=== PATIENT | female | born 1995 | race Caucasian/White ===

== ENCOUNTER 2024-09-09 03:20 | Outpatient (CLI) | payer BC, SELFPAY ==
[2024-09-09 08:13] LABS: Abs Immature Grans 0.01 10^3/uL (0.0-0.06); Absolute Basophil Count 0.03 10^3/uL (0.0-0.2); Absolute Eosinophil Count 0.13 10^3/uL (0.0-0.7); Absolute Lymphocyte Count 2.01 10^3/uL (1.2-3.4); Absolute Neutrophil Count 2.52 10^3/uL (1.2-6.7); Basophils % 0.6 %; Eosinophils % 2.5 %; HCT 38.8 % (36.0-46.0); HGB 12.9 g/dL (11.2-15.7); Immature Grans % 0.2 %; Lymphocytes % 39.4 %; MCH 29.6 pg (27.0-33.0); MCHC 33.2 % (32.0-36.0); MCV 89 fL (80-95); MPV 9.4 fL (8.0-11.0); Monocytes % 7.8 %; Neutrophils % 49.5 %; Platelet Count 331 10^3/uL (130-400); RBC 4.36 10^6/uL (3.93-5.22); RDW 11.9 % (11.7-14.6)
[2024-09-09 08:32] LABS: Calculated LDL 108 mg/dL (<100); Cholesterol 193 mg/dL (<200); HDL Cholesterol 73 mg/dL (40-60); Triglyceride 64 mg/dL (<150)
== END 2024-09-09 03:21 | disposition home or self-care (01) ==
LOC: LBO 03:20
PROVIDERS: PCP Nurse Practitioner Family; Visit Provider Nurse Practitioner Family
DX: Z00.00 Encounter for general adult medical examination without abnormal findings (principal); N92.1 Excessive and frequent menstruation with irregular cycle
CPT/HCPCS: 36415; 80061; 85025

== ENCOUNTER 2024-12-04 11:37 | Outpatient (CLI) | payer BC, SELFPAY ==
[2024-12-04 11:41] LABS: Abs Immature Grans 0.02 10^3/uL (0.0-0.06); Absolute Basophil Count 0.04 10^3/uL (0.0-0.2); Absolute Eosinophil Count 0.08 10^3/uL (0.0-0.7); Absolute Lymphocyte Count 2.06 10^3/uL (1.2-3.4); Absolute Monocyte Count 0.53 10^3/uL (0.1-0.8); Absolute Neutrophil Count 5.31 10^3/uL (1.2-6.7); Basophils % 0.5 %; HCT 40.4 % (36.0-46.0); HGB 13.5 g/dL (11.2-15.7); Immature Grans % 0.2 %; Lymphocytes % 25.6 %; MCH 29.3 pg (27.0-33.0); MCHC 33.4 % (32.0-36.0); MCV 88 fL (80-95); MPV 9.4 fL (8.0-11.0); Monocytes % 6.6 %; Neutrophils % 66.1 %; Platelet Count 338 10^3/uL (130-400); RDW 11.4 % (11.7-14.6); RDW-SD 36.8 fL; WBC 8.04 10^3/uL (4.4-10.8)
--- OUTSIDE RECORDS SUMMARY | 2024-12-04 11:41 | XMS_ITS | Encounter Summary ---
Author Organization [place] [address] Care Team Providers Care Hemodialysis Technician Name Role Phone Rhoda Noel APRN Primary Care Provider [phone] Reason for Referral * Consultation (Routine) - Closed Specialty Diagnoses / Procedures Referred By Jay brown Referred To Contact Dermatology Diagnoses Disorder of skin and subcutaneous tissue Rhoda Noel APRN [address] [place] [address] [facility] [address] [place] [address] Referral ID Status Reason Start Date Expiration Date V isits Requested Visits Authorized [id number] Closed Consult, Test & Treat PCP Updated and/or Approved 07/24/2024 07/24/2025 6 6 Encounter Details Date Type Department Care Team (Latest Contact Info) Description 08/17/2024 Transcribe Orders eDH Incoming Referrals [phone] Rhoda Noel APRN [address] [place] [address] Disorder of skin and subcutaneous tissue Social History Tobacco Use Types Packs/Day Years Used Date Smoking Tobacco: Former Cigarettes Smokeless Tobacco: Never Alcohol Use Standard Drinks/Week Comments Yes 0 (1 standard drink = 0.6 oz pur e alcohol) 3 per week [facility] Inpatient Questions Answer Date Recorded Does Anyone Try to Keep You From Having Contact with Others or Doing Things Outside Your Home? no 01/22/2024 Feels Threatened by Someone no 04/2024 Feels Unsafe at Home or Work/School no 01/22/2024 Physical Signs of Abuse Present no 01/22/2024 Sex and Gender Information Value Date Recorded Sex Assigned at Not on file Gender Identity Not on file Sexual Orientation Not on file documented as of this encounter Plan of Treatment Scheduled Referrals Name Type Priority Associated Diagnoses Orde r Schedule Referral to Dermatology Outpatient Referral Routine Disorder of skin and subcutaneous tissue Ordered: 08/17/2024 documented as of this encounter Visit Diagnoses Diagnosis Disorder of skin and subcutaneous tissue Unspecified disorder of skin and subcutaneous tissue documented in this encounter Care Teams Hemodialysis Technician Relationship Specialty Start Date End Date Rhoda Noel APRN [address] [facility] [address] PCP - General Family Medicine 08/16/24 documented as of this encounter
--- OUTSIDE RECORDS SUMMARY | 2024-12-04 11:41 | XMS_ITS | Encounter Summary ---
Author Organization [facility] [place] [address] Care Team Providers Care Stock Clerk Name Role Phone Rhoda Noel APRN Primary Care Provider [phone] Reason for Referral * Consultation (Routine) - Closed Specialty Diagnoses / Procedures Referred By Jay t Referred To Contact Endocrinology Diagnoses Obesity, unspecified class, unspecified obesity type, unspecified whether serious comorbidity present Rhoda Noel APRN [address] [place] [address] [facility] [address] [place] [phone] Referral ID Status Reason Start Date Expiration Date V isits Requested Visits Authorized [id number] Closed Consult, Test & Treat PCP Updated and/or Approved 08/28/2024 02/26/2025 6 6 Encounter Details Date Type Department Care Team (Latest Contact Info) Description 09/23/2024 Transcribe Orders eDH Incoming Referrals [phone] Rhoda Noel APRN [address] [facility] [place] [place] [id number] Obesity, unspecified class, unspecified obesity type, unspecified whether serious comorbidity present Social History Tobacco Use Types Packs/Day Years Used Date Smoking Tobacco: Former Cigarettes Smokeless Tobacco: Never Alcohol Use Standard Drinks/Week Comments Yes 0 (1 standard drink = 0.6 oz pur e alcohol) 3 per week [facility] Inpatient Questions Answer Date Recorded Does Anyone [...] Scheduled Referrals Name Type Priority Associated Diagnoses Order Schedule Referral to Endocrinology Outpatient Referral Routine Obesity, Unspecified Class, Unspecified Obesity Type, Unspecified Whether Serious Comorbidity Present Ordered: 09/23/2024 documented as of this encounter Visit Diagnoses Diagnosis Obesity, unspecified class, unspecified obesity type, unspecified whether serious comorbidity present documented in this encounter Care Teams Stock Clerk Relationship Specialty Start Date End Date Rhoda Noel APRN [address] [place] [address] PCP - General Family Medicine 08/16/24 documented as of this encounter
--- OUTSIDE RECORDS SUMMARY | 2024-12-04 11:41 | XMS_ITS ---
Author Organization Unknown Address [address] [place] [phone] Phone Care Team Providers Care Sales Representative Supervisor Name Role Phone ETHAN JENKINS Registered Nurse Unavailable CRESENCIO Altman Attending Unavailable [facility] Unavailable UNLISTED PROVIDER - REQUESTED Xhandoff Un available Results [facility] COVID FLU RSV GENEXPE RT - Collect Date/Time: 05/23/2024 16:23 [facility] ID: [id number] [address] [place] [place], [place], [id number] LOINC: 54082-0 Test Value Unit Reference Range Code Code System Flag COVID POSITIVE Normal: Negative 60002-5 LOINC A INFLUENZA A DNA NEGATIVE Normal: Negative 23758-8 LOINC INFLUENZA B DNA NEGATIVE Normal: Negative 32665-5 LOINC RSV DNA NEGATIVE Normal: Negative 93317-7 LOINC XR CHEST 2V PA AND LATERAL - Completed: 05/23/2024 16:31 LOINC: [facility] RADIOLOGY [place], [place] [address] RADIOLOGY PACS WHIP SAWYER REPORT Patient Name: REDDY TIMMONS MRN: Sex: : Age: [id number] F 1995 28 Account: Accession: Admit: StayType: [id number] 05/23/2024 E Ordered: Order ID: Submitted: Ordering Provider: 05/23/2024 16:19 [id number] REENA HEARD Completed: Technologist: Resulted: 05/23/2024 16:36 MLL 05/23/2024 16:42 FINAL REPORT EXAMINATION: XR CHEST 2V PA AND LATERAL CLINICAL HISTORY: Reason for Chest: Cough Add'l Info: TECHNIQUE: PA and lateral views of the chest COMPARISON: None FINDINGS: The lungs are clear. No airspace consolidation, pleural effusion, or pneumothorax. The cardiomediastinal silhouette and pulmonary vascularity are within normal limits. No acute osseous abnormality is seen. IMPRESSION: No acute pulmonary process. Thank you for letting us participate in the care of this patient. If you are a health care provider and have any questions regarding this report, please contact the number below. For patients who have questions please contact the health human services care specialist that requested your imaging first. Social History Type Status Start Date End Date Code Code Syst em Smoking History Current some day smoker [id number] SNOMED CT Sex Female Vital Signs Vital Sign Value Unit Swift Value Swift Unit Date/Time Recent/Initial? Code Code System Body Mass Index 31.16 kg/m2 05/23/2024 14:58 Initial 05927 -5 LOINC Systolic Blood Pressure 141 mm[Hg] 05/23/2024 14:58 Initial 8480- 6 LOINC Diastolic Blood Pressure 91 mm[Hg] 05/23/2024 14:58 Initial 8462- 4 LOINC Body Surface Area 2.16 m2 05/23/2024 14:58 Initial 3140- 1 LOINC Height 175.260 0 cm 69.00 in 05/23/2024 14:58 Initial 8302- 2 LOINC O2 Saturation 100 % 2023 14:58 Initial 77390 -5 LOINC Pulse 83.0 /min 05/23/2024 14:58 Initial 8867- 4 LOINC Respiration 16 /min 05/23/20 14:58 Initial 9279- 1 [facility] Temperature 36.8 [place] 98.2 F 05/23/20 14:58 Initial 8310- 5 [facility] Weight 95.71 kg 211.00 lbs 05/23/2024 14:58 Initial 91595 -7 [facility] Hospital Discharge Instructions Should you have any questions prior to discharge, please contact a member of your healthcare team. If you have left the hospital and have any questions, please contact your primary care physician. Reason For Referral No Data Found Allergies and Adverse Reactions Allergy Substance Reaction Severity Start Date Concern Status Co de Code System AMOXICILLIN Active 723 RxNorm Plan of Treatment No Data Found Encounters Encounter Diagnosis Start Date Code Code Sys tem COVID-19 05/23/2024 SNOMED-CT Personal Care Team Section Performer Name Performer Role Active Date Inactive Da conor
--- OUTSIDE RECORDS SUMMARY | 2024-12-04 11:41 | XMS_ITS | Clinical Summary ---
Author Organization [facility] Address [facility] [place] [address] Care Team Providers Care Technical Illustrator Name Role Phone Rhoda Noel APRN Primary Care Provider [phone] Allergies Active Allergy Reactions Criticality Noted Date Comments Amoxicillin Rash Medium 09/12/2023 Medications Medication Sig Dispensed Refills Start Date End Date Status lamoTRIgine (LaMICtal) 100 mg tablet Take 50 mg by mouth daily. Active atomoxetine (Strattera) 60 mg capsule Take 60 mg by mouth daily. Active hydrOXYzine (Atarax) 10 mg tablet Take 10 mg by mouth nightly as needed for Itching. Active Active Problems No known active problems Encounters Date Type Department Care Team Description 09/23/2024 Transcribe Orders eD Incoming Referrals [phone] Rhoda Noel APRN Obesity, unspecified class, unspecified obesity type, unspecified whether serious comorbidity present from Last 3 Months Social History Tobacco Use Types Packs/Day Years Used Date Smoking Tobacco: Former Cigarettes Smokeless Tobacco: Never Tobacco Cessation:Counseling Given: Not Answered Alcohol Use Standard Drinks/Week Comments Yes 0 (1 standard drink = 0.6 oz pur e alcohol) 3 per week [facility] Inpatient Questions Answer Date Recorded Does [...] on file Sexual Orientation Not on file Last Filed Vital Signs Vital Sign Reading Time Taken Comments Blood Pressure 133/90 01/22/2024 10:00 AM EST Pulse 89 01/22/2024 10:00 AM EST Temperature 36.7 ??C (98.1 ??F) 01/22/2024 9:33 AM ES T Respiratory Rate 18 01/22/2024 10:00 AM EST Oxygen Saturation 100% 01/22/2024 10:00 AM EST Inhaled Oxygen Concentration - - Weight 99.8 kg (220 lb) 01/22/2024 6:13 AM EST Height 172.7 cm (5' 8) 01/22/2024 6:13 AM EST Body Mass Index 33.45 01/22/2024 6:13 AM EST Plan of Treatment Health Maintenance Due Date Last Done Comments HIV screen 2012 Hepatitis C Screening 2012 Lipid Screening 2012 Hepatitis B vaccine (0-59 yrs) (1) 2013 Tetanus/Diphtheria/Pertussis Vaccines (1 - Tdap) 07/09 HPV test 2024 PAP Smear 2024 Covid-19 Vaccine (1 - season) 2024 Influenza (Flu) vaccine (1 o f 1 - Influenza standard series) 07/19/2024 Care Teams Technical Illustrator Relationship Specialty Start Date End Date Rhoda Noel APRN [address] [place] [address] PCP - General Family Medicine 08/16/24
--- OUTSIDE RECORDS SUMMARY | 2024-12-04 11:42 | XMS_ITS | Encounter Summary ---
Author Organization [facility] Address [facility] [place] [address] Care Team Providers Care Surgery Consultant Name Role Phone None Primary Care Provider Unavailabl e Encounter Details Date Type Department Care Team (Latest Contact Info) Description 06/11/2024 Travel Social History Tobacco Use Types Packs/Day Years Used Date Smoking Tobacco: Former Cigarettes Smokeless Tobacco: Never Alcohol Use Standard Drinks/Week Comments Yes 0 (1 standard drink = 0.6 oz pur e alcohol) 3 per week [facility] Inpatient Questions Answer Date Recorded Does Anyone [...] as of this encounter Plan of Treatment Not on file documented as of this encounter Visit Diagnoses Not on filedocumented in this encounter Care Teams Surgery Consultant Relationship Specialty Start Date End Date None None PCP - General 09/12/23 08/15/24 documented as of this encounter
--- OUTSIDE RECORDS SUMMARY | 2024-12-04 11:42 | XMS_ITS | Encounter Summary ---
Author Organization [facility] [place] [address] Care Team Providers Care Highway Maintenance Worker Name Role Phone None Primary Care Provider Unavailabl e Encounter Details Date Type Department Care Team (Late st Contact Info) Description 05/23/2024 Interpretation Only [facility] in [facility] [address] [place] [address] Lexi Adkins, RN [facility] [address] [place] [address] Social History Tobacco Use Types Packs/Day Years [...] on file documented as of this encounter Procedures Procedure Name Priority Date/Time Associated Diagnosis Comments XR CHEST PA AND LATERAL STAT 05/23/2024 4:32 PM EDT documented in this encounter Results * XR Chest PA & Lateral (Generic) (05/23/2024 4:32 PM EDT) PT CLASS E DH RAD ADMITDTTM [id number] RAD PT RAD INFO [id number]^ALICIA^C HELSEA^L RAD EXAM DESC XCXR2^XR CHEST 2V PA AND LATERAL^RIS [facility] WORKSTATION ID [id number] [facility] Anatomical Region Laterality Modality Chest N/A Radiographic Hillary ging Impressions 05/23/2024 4:42 PM EDT No acute pulmonary process. Thank you for letting us participate in the care of this patient. ??If you are a health care provider and have any questions regarding this report, please contact the number below. ??For patients who have questions please contact the health home care attendant that requested your imaging first. ? Electronically signed by: Neal Gutierrez MD, [facility] ??([phone]), at 05/23/2024 4:42 PM Narrative 05/23/2024 4:42 PM EDT EXAMINATION: XR CHEST 2V PA ??AND LATERAL CLINICAL HISTORY: ??Reason for Chest: ??Cough ??Add'l Info: TECHNIQUE: PA and lateral views of the chest COMPARISON: None FINDINGS: The lungs are clear. No airspace consolidation, pleural effusion, or pneumothorax. The cardiomediastinal silhouette and pulmonary vascularity are within normal limits. No acute osseous abnormality is seen. Procedure Note Neal Gutierrez MD - 05/23/2024 EXAMINATION: XR CHEST 2V PA AND LATERAL CLINICAL HISTORY: Reason for Chest: Cough Add'l Info: TECHNIQUE: PA and lateral views of the chest COMPARISON: None FINDINGS: The lungs are clear. No airspace consolidation, pleural effusion, or pneumothorax. The cardiomediastinal silhouette and pulmonary vascularityare within normal limits. No acute osseous abnormality is seen. IMPRESSION No acute pulmonary process. Thank you for letting us participate in the care of this patient. If youare a health care provider and have any questions regarding this report,please contact the number below. For patients who have questions please contactthe health home care attendant that requested your imaging first. Electronically signed by: Neal Gutierrez MD, [facility]([phone]), at 05/23/2024 4:42 PM Lexi Adkins RN I[facility] IMG DX ORDERABLES documented in this encounter Visit Diagnoses Not on filedocumented in this encounter Care Teams Highway Maintenance Worker Relationship Specialty Start Date End Date None None PCP - General 09/12/23 08/15/24 documented as of this encounter
--- OUTSIDE RECORDS SUMMARY | 2024-12-04 11:42 | XMS_ITS | Encounter Summary ---
Author Organization [facility] Address [facility] [place] [address] Care Team Providers Care Enterprise Systems Manager Name Role Phone None Primary Care Provider Unavailabl e Encounter Details Date Type Department Care Team (Latest Contact Info) Description 01/28/2024 Travel Social History Tobacco Use Types Packs/Day [...] on filedocumented in this encounter Care Teams Enterprise Systems Manager Relationship Specialty Start Date End Date None None PCP - General 09/12/23 08/15/24 documented as of this encounter
--- OUTSIDE RECORDS SUMMARY | 2024-12-04 11:42 | XMS_ITS | Encounter Summary ---
Author Organization [facility] Address [facility] [place] [address] Care Team Providers Care Job Coach Name Role Phone None Primary Care Provider Unavailabl e Encounter Details Date Type Department Care Team ([facility] st Contact Info) Description 06/18/2024 8:40 AM EDT TH Visit (TeleHealth) [place] [address] Micheline Madera APRN [facility] [address] [place] [address] Surgery follow-up Social History Tobacco Use Types Packs/Day Years Used Date Smoking Tobacco: Former Cigarettes Smokeless Tobacco: Never Alcohol Use Standard Drinks/Week Comments Yes 0 (1 standard drink = 0.6 oz pur e alcohol) 3 per week [facility] Inpatient Questions Answer Date Recorded Does Anyone Try to Keep You From Having Contact with Others or Doing Things Outside Your Home? no 01/22/2024 Feels Threatened by Someone no 030 04/2024 Feels Unsafe at Home or Work/School no 01/22/2024 Physical Signs of Abuse Present no 01/22/2024 Sex and Gender Information Value Date Recorded Sex Assigned at Not on file Gender Identity Not on file Sexual Orientation Not on file documented as of this encounter Progress Notes * Micheline Madera APRN - 06/18/2024 8:40 AM EDT Plastic Surgery Telehealth Follow Up Note Micheline Madera APRN. Reason for visit: Follow up s/p BBR Date of surgery: 01/22/24 Procedure(s): Bilateral Breat Reduction (MKM) HPI: Celeste Pond is here today for follow up after drainage of abscess on right breast post breast reduction. Completed course of Clindamycin. She reports redness, swelling and pain have all resolved. She has no concerns. Examination: Limited due to telehealth Deferred. Culture from drainage. Component 7 d ago Anaerobic Culture Rare Cutibacterium acnes (Propionibacterium acnes) Abnormal Organism Cutibacterium acnes (Propionibacterium acnes) Abnormal Impression: Celeste Pond is a 28 y.o. female who was seen today for follow-up. Infection resolved. Plan: Follow up PRN documented in this encounter Plan of Treatment Not on file documented as of this encounter Visit Diagnoses Diagnosis Surgery follow-up Follow-up examination, following unspecified surgery documented in this encounter Care Teams Job Coach Relationship Specialty Start Date End Date None None PCP - General 09/12/23 08/15/24 documented as of this encounter
--- OUTSIDE RECORDS SUMMARY | 2024-12-04 11:42 | XMS_ITS | Encounter Summary ---
Author Organization [facility] [place] [address] Care Team Providers Care Investment Fund Manager Name Role Phone None Primary Care Provider Unavailabl e Reason for Visit * Reason Comments Follow Up Surgery Encounter Details Date Type Department Care Team ([facility] st Contact Info) Description 06/11/2024 1:00 PM EDT Office Visit Plastic Surgery at [facility] [place] [address] Micheline Madera APRN [facility] [place] [address] Macromastia Social History Tobacco Use Types Packs/Day Years Used Date Smoking Tobacco: Former Cigarettes Smokeless Tobacco: Never Alcohol Use Standard Drinks/Week Comments Yes 0 (1 standard drink = 0.6 oz pur e alcohol) 3 per week [facility] Inpatient Questions Answer Date Recorded Does Anyone [...] Progress Notes * Micheline Madera APRN - 06/11/2024 1:00 PM EDT Plastic Surgery Telehealth Follow Up Note Micheline Madera APRN. Reason for visit: Follow up s/p BBR Date of surgery: 01/22/24 Procedure(s): Bilateral Breat Reduction (MKM) Complications: None reported HPI: Celeste Pond is here today for follow up on a red lump on her right breast post breast reduction. She reports that she was healing well without concerns. About a week ago the right breast had a small area that was red and tender. Over the past week this has gotten worse. No fevers/chills. Examination: Patient is alert, conversant, comfortable Right breast erythema inferior to NAC. Area cleansed with alcohol and 1 ml of 1% lidocaine with epi injected. Area cleansed with Betadine and lanced. Approximately 3 ml of purulent fluid drained. Fluid sent for culture. Impression: Celeste Pond is a 28 y.o. female who was seen today for follow-up. Abscess drained inclinic. Plan: Follow up: 7-10 days via [facility] course of Clindamycin. Follow cultures and adjust antibiotics as indicated. Dr. Choi in to examine patient. He agrees with this plan. documented in this encounter Plan of Treatment Not on file documented as of this encounter Procedures Procedure Name Priority Date/Time Associated Diagnosis Comments ANAEROBIC CULTURE Routine 06/11/2024 1:2 1 PM EDT Macromastia HC WOUND/ABSCESS CX Routine 06/11/2024 1 :21 PM EDT Macromastia ABSCESS/WOUND ASPIRATE CULTURE Routine 06/11/2024 1:21 PM EDT Macromastia documented in this encounter Results * (ABNORMAL) Anaerobic Culture (06/11/2024 1:21 PM EDT) Anaerobic Culture Rare Cutibacterium acnes (Propionibacteriu m acnes)(A) [facility] Organism Cutibacterium acnes (Propionibacteriu m acnes)(A) [facility] Abscess RIGHT BREAST STRUCTURE / Unknown 06/11/2024 1:21 PM EDT 06/11/2024 2:35 PM EDT Narrative Resulting Agency Comment Spec In Lab Micheline Madera APRN MICROBIOLOGY - GENER AL ORDERABLES Performing Organization Address [facility] de Phone Number [facility] [place] [address] * (ABNORMAL) Abscess/Wound Aspirate Culture (06/11/2024 1:21 PM EDT) Abscess/Wound Aspirate Culture No growth(A) [facility] Gram Stain Many Neutrophils seen Moderate Gram Positive Rods seen Few Gram Positive Cocci seen (A) [facility] Organism Gram Positive Rods(A) [facility] Organism Gram Positive Cocci(A) [facility] Abscess RIGHT BREAST STRUCTURE / Unknown 06/11/2024 1:21 PM EDT 06/11/2024 2:35 PM EDT Narrative Resulting Agency Comment Spec In Lab Micheline Madera APRN MICROBIOLOGY - GENER AL ORDERABLES Performing Organization Address [facility] Co de Phone Number [facility] [place] [address] documented in this encounter Visit Diagnoses Diagnosis Macromastia Hypertrophy of breast documented in this encounter Care Teams Investment Fund Manager Relationship Specialty Start Date End Date None None PCP - General 09/12/23 08/15/24 documented as of this encounter
--- OUTSIDE RECORDS SUMMARY | 2024-12-04 11:42 | XMS_ITS | Encounter Summary ---
[place] [address] Care Team Providers Care Research Methods Instructor Name Role Phone None Primary Care Provider Unavailabl e Reason for Visit * Auth/Cert (Routine) Specialty Diagnoses / Procedures Referred By Jay brown Referred To Contact Diagnoses macromastia Procedures PRO BREAST REDUCTION PRO FULL THICK GRFT TRUNK <20 SQCM REDUCTION MAMMOPLASTY, JORDAN (WRVU 16.03) FTSG, FREE, DIR CLOSE DONOR SITE, TRUNK, 20 SQ CM OR LESS (WRVU 9.15) MODIFIER Bry Ortiz MD [facility] [place] [address] [facility] Referral ID Status Reason Start Date Expiration Date Visits Re quested Visits Authorized [id number] 1 1 Encounter Details Date Type Department Care Team (Late st Contact Info) Description 01/22/2024 7:32 AM EST Anesthesia Event [facility] [address] Nallely Sibley MD [facility] [place] [address] Anesthesia Record Procedure Summary Procedure Name Responsible Anesthesiologist Anesthesia Start Time Anesthesia Stop Time REDUCTION MAMMOPLASTY, JORDAN (WRVU 16.03) (Bilateral: Breast) Nallely Sibley MD 01/22/24 0732 01/22/24 0937 Events Date Time Event Comment 01/22/2024 0659 0732 AN Verify 0732 Start 0732 An Start Data 0737 An Induction 0739 An Intubation 0740 Anesthesia Ready 0754 Procedure Start 0823 Break/Relief In I assumed ca re for Break Relief before which we: 1. Identified the patient 2. Identified the responsible provider(s) 3. Reviewed the pertinent medical history 4. Discussed the surgical plan and course 5. Reviewed intra-op anesthesia management and issues during anesthesia 6. Set expectations for the relief (and/or post-procedure) period 7. Allowed opportunity for questions and acknowledgement of understanding Elena Corona CRNA 08 Break/Relief Out 927 Extubation/LMA Out 928 an stop data 0937 Recovery or ICU Handoff Roya ent care was transferred to the destination unit staff after review of the patient's medical history, current anesthetic/surgical status and plan, according to the Provider Handoff Checklist. 0937 Stop Meds Name Total Propofol 450 mg Propofol INF 847.6 mg Midazolam 2 mg IV Lidocaine 60 mg Dexamethasone 8 mg Ondansetron 8 mg HYDROmorphone 1.2 mg clindamycin (Cleocin) (150 mg/mL) inject ion 600 mg 600 mg lactated ringers 900 mL * Agents Name O2 * Blood No blood administrations on file. Lines, Drains, and Airways Type Details Placement Removal PIV 01/22/24; 06; ahnz-xef-tikurw catheter system; 20 gauge; metacarpal vein (top of hand), left; E BENIGNO Tesfaye 01/22/24 0634 by Miranda Tesfaye RN Incision 01/22/24; 0752; Left , lower; breast; transverse 01/22/24 0752 by Nimco Vick RN Incision 01/22/24; 0757; Righ t, lower; breast; transverse 01/22/24 0757 by Nimco Vick RN Supraglottic Mask Ventilation: Ea sy (1); LMA Type: iGel; LMA Size: 4; Inserted by: Malathi Syed; Removal Date: 01/22/24; Removal Time: 92701/22/24 0744 by Rowena Syed CRNA 01/22/24 09 by Rowena Syed CRNA documented in this encounter Social History Tobacco Use Types Packs/Day Years Used Date Smoking Tobacco: Former Cigarettes Smokeless Tobacco: Never Alcohol Use Standard Drinks/Week Comments Yes 0 (1 standard drink = 0.6 oz pur e alcohol) 3 per week IPV Inpatient Questions Answer Date Recorded Does [...] on file documented as of this encounter OR Notes * Anesthesia Postprocedure Evaluation - Nallely Sibley MD - 01/22/2024 10:30 AM EST Department of Anesthesiology Post-procedure Note Patient: Celeste Pond Procedure Summary Date: 01/22/24 Room / Location: [address] Anesthesia Start: 731 Anesthesia Stop: 936 Procedures: REDUCTION MAMMOPLASTY, JORDAN (WRVU 16.03) (Bilateral: Breast) FTSG, FREE, DIR CLOSE DONOR SITE, TRUNK, 20 SQ CM OR LESS (WRVU 9.15) (Bilateral: Trunk) MODIFIER MACKEY Diagnosis: Macromastia (macromastia) Surgeons: Bry Choi MD Responsible Provider: Nallely Sibley MD Anesthesia Type: general ASA Status: 2 All Anesthesia Providers: Anesthesiologist: Nallely Sibley MD LEAD INVESTIGATOR: Rowena Syed CRNA Vitals Value Taken Time BP 133/90 01/22/24 1000 Temp 36.7 ??C (98.1 ??F) 01/22/24 0933 Pulse 86 01/22/24 1013 Resp 18 01/22/24 1000 SpO2 100 % 01/22/24 1014 Pain Level 8 01/22/24 0959 Vitals shown include unfiled device data. Patient Location: PACU/[facility] Level of Consciousness: Awake and Alert Pain Management: Satisfactory Analgesia PONV: None Cardiovascular Status: At Baseline Respiratory Status: At Baseline Postoperative Fluid Status: Possible Anesthetic Complications: NONE apparent at time of evaluation Final Primary Anesthesia Type: General (The anesthetic type performed was the same as planned.) Comments: * Anesthesia Preprocedure Evaluation - Nallely Sibley MD - 01/21/2024 1:46 PM EST Pre-Anesthesia Evaluation for: Celeste Pond a 28 y.o. female. Procedure(s): REDUCTION MAMMOPLASTY, JORDAN (WRVU 16.03) FTSG, FREE, DIR CLOSE DONOR SITE, TRUNK, 20 SQ CM OR LESS (WRVU 9.15) MODIFIER MACKEY There are no problems to display for this patient. History reviewed. No pertinent past medical history. History reviewed. No pertinent surgical history. Social History Tobacco Use ??? Smoking status: Former Types: Cigarettes ??? Smokeless tobacco: Never Substance Use Topics ??? Alcohol use: Yes Comment: 3 per week Social History Substance and Sexual Activity Drug Use Yes ??? Frequency: 1.0 times per week ??? Types: Marijuana Comment: edible Allergies Allergen Reactions ??? Amoxicillin Rash Medications: MAR and/or home medications have been reviewed. Physical Exam: Preprocedure Vitals Current as of 01/21/24 1346 No BP, pulse, respiration, SpO2, or temperature recorded. Height: 173.7 cm (5' 8.39) (09/12/23) Weight: 103 kg (227 lb) (09/12/23) BMI: 34.12 IBW: 64.8 kg (142 lb 13.3 oz) Airway Assessment: Mallampati: II TM distance: >3 FB Cardiovascular Assessment: Rhythm: regular Rate: normal Pulmonary Assessment: unlabored breathing Dental Assessment: - normal exam Misc Assessment: IV access: Peripheral line Last Filed Perioperative Cognitive Screening None Anesthesia Plan: ASA 2 general, with a(n) intravenous induction 28 yo, 103 kg patient presenting for bilateral breast reduction. Uses marijuana previously (hasn't used in over a month), on lamictal on bipolar disorder. Allergy to amoxicillin (rash). No prior anesthesia records, but denies family hx of issues Plan: GA/LMA Region - Other Informed Consent: Anesthetic plan and risks discussed with patient. Plan discussed with LEAD INVESTIGATOR and attending. Anesthesia Screening documented in this encounter Plan of Treatment Not on file documented as of this encounter Visit Diagnoses Not on filedocumented in this encounter Administered Medications Inactive Administered Medications - up to 3 most recent administrations Medication Order MAR Action Action Date Dose Rate Site clindamycin (Cleocin) (150 mg/mL) injection 600 mg 600 mg, Intravenous, ONCE, 1 dose, On Sat01/22/24 at 0715, Routine, Indication for (Active or Suspected): Prophylaxis Given 01/22/2024 7:40 AM EST 600 mg dexAMETHasone (Decadron) injection Intravenous, PRN, Starting on Sat01/22/24 at 0740, Until Sat01/22/24 at 0937, Anesthesia Intra-op, Routine Given 01/22/2024 7:40 AM EST 8 mg HYDROmorphone (Dilaudid) (2 mg/mL) multi-dose injection solution Intravenous, PRN, Starting on Sat01/22/24 at 0737, Until Sat01/22/24 at 0937, Anesthesia Intra-op, Routine Given 01/22/2024 9:30 AM EST 0.2 mg Given 01/22/2024 9:13 AM EST 0.2 mg Given 01/22/2024 8:01 AM EST 0.4 mg lactated ringers infusion Intravenous, CONTINUOUS PRN, Starting on Sat01/22/24 at 0732, Until Sat01/22/24 at 0937, Anesthesia Intra-op New Bag 01/22/2024 7:32 AM EST lidocaine (pf) (Xylocaine) (20 mg/mL) 2% injection syringe Intravenous, PRN, Starting on Sat01/22/24 at 0737, Until Sat01/22/24 at 0937, Anesthesia Intra-op, Routine Given 01/22/2024 7:37 AM EST 60 mg midazolam (pf) (Versed) (1 mg/mL) multi-dose injection Intravenous, PRN, Starting on Sat01/22/24 at 0732, Until Sat01/22/24 at 0937, Anesthesia Intra-op, Routine Given 01/22/2024 7:32 AM EST 2 mg ondansetron (pf) (Zofran) (2 mg/mL) injection Intravenous, PRN, Starting on Sat01/22/24 at 0740, Until Sat01/22/24 at 0937, Anesthesia Intra-op, Routine Given 01/22/2024 9:20 AM EST 4 mg Given 01/22/2024 7:40 AM EST 4 mg propofoL (Diprivan) (10 mg/mL) infusion Intravenous, CONTINUOUS PRN, Starting on Sat01/22/24 at 0739, Until Sat01/22/24 at 0937, Anesthesia Intra-op, Routine Rate/Dose Change 01/22/2024 9:14 AM EST 50 mcg/kg/min 23.49 mL/hr Rate/Dose Change 01/22/2024 9:00 AM EST 75 mcg/kg/min 35.2 35 mL/hr Rate/Dose Change 01/22/2024 8:45 AM EST 100 mcg/kg/min 46. 98 mL/hr propofoL (Diprivan) 10 mg/mL bolus injection (Anesthesia) Intravenous, PRN, Starting on Sat01/22/24 at 0737, Until Sat01/22/24 at 0937, Anesthesia Intra-op Given 01/22/2024 7:54 AM EST 50 mg Given 01/22/2024 7:39 AM EST 50 mg Given 01/22/2024 7:38 AM EST 100 mg documented in this encounter Care Teams Research Methods Instructor Relationship Specialty Start Date End Date None None PCP - General 09/12/23 08/15/24 documented as of this encounter
--- OUTSIDE RECORDS SUMMARY | 2024-12-04 11:42 | XMS_ITS | Encounter Summary ---
Author Organization [facility] [place] [address] Care Team Providers Care Cigarette Inspector Name Role Phone None Primary Care Provider Unavailabl e Reason for Visit * Reason Comments Follow Up Surgery S/p bbr 01/22/24 Encounter Details Date Type Department Care Team (Latest Contact Info) Description 01/29/2024 1:00 PM EDT Clinical Support Plastic Surgery at [facility], [place] [id number] Surgery follow-up Social History Tobacco Use Types Packs/Day Years Used Date Smoking Tobacco: Former Cigarettes Smokeless Tobacco: Never Alcohol Use Standard Drinks/Week Comments Yes 0 (1 standard drink = 0.6 oz pur e alcohol) 3 per week [facility] Inpatient Questions Answer Date Recorded Does Anyone [...] on file documented as of this encounter Patient Instructions * Patient Instructions* Elizabeth Cobos RN - 01/29/2024 1:00 PM EDT Signs of Infection : A temperature over 100.4 F or 38 C. Redness at the incision line that is beginning to spread away from the incision after the first 48 hours. Yellow pus-like or foul smelling drainage larger than a dime size from the incision or drain sites. Increased pain / discomfort that is not relieved by your pain medicine such as extra strength tylenol, or NSAIDS For any of these symptoms please call our nurse's line at [phone] M - F 8 - 5 For after hours, and on weekends; Call [phone] and ask for our plastic surgeon relocation counselor Activity restrictions until 6 weeks post-op: do not lift/push/pull > 5 pounds, no running or bouncing, no push-ups or plank position. Wear compressive bra around the clock until six weeks after surgery. Six weeks after surgery all restrictions lifted except no under wire bra. Do not wear an under wirebra until you gain normal sensation under your breast (expect 3-6 months) -SCAR MASSAGE TECHNIQUE: to begin 4-6 weeks following surgery What is a scar? When an injury occurs, the body immediately begins to repair itself & the area becomes swollen & sore. Eventually small collagen fibers form, becoming a solid tissue that results in a scar. This scar will continue to change in appearance for 1-2 years. Ideally, a scar is smooth & flat, blending in with the surrounding skin. However, some scars may become highly visible & unattractive due to factors such as your age, scar location & size, nutrition, genetics, or infection. A hypertrophic scar occurs when there is an excess production of collagen tissue that is elevated but remains within the wound boundaries. The scar is tense, red, & can be associated with itching & tenderness. A hypertrophic scar can be ordinary (usually stabilizes in 3 months & may even get smaller and smoother) or keloid. The keloid scar invades nearby tissue that was not part of the original wound, tends to enlarge even after 6 months & does not get softer. Will scar massage make my scars disappear? Nothing can make scars disappear. However, massaging the scar assists the body in breaking down thescar tissue to give it a flatter, softer, appearance. Massage also mobilizes the scar, preventing it from adhering to underlying tissue, tendons, & nerves. You can make the greatest difference in the appearance of the scar if you massage it in the first 3months. What should I use on my scars? You will hear many recommendations. This clinic finds that it is the massage itself that reduces the scar & not necessarily the choice of ointments or creams. We do discourage the use of Vitamin E oil, however, due to studies that have reported scar inflammation & deterioration. How do I massage my scars? Apply the lotion or cream into the scar 3-4 times a day for 8 weeks on new scars, and 3-4 times perday for 3 to 6 months on existing scars. Using your finger, apply pressure to the scar in a crosswise & circular direction, bearing down as hard as tolerated. Remember to protect your scar from the sun, especially in the first 6-12 months, by using a moisturizer with sunblock and wearing a physical barrier (ie: a hat) when possible documented in this encounter Progress Notes * Elizabeth Cobos RN - 01/29/2024 1:00 PM EDT Plastic Surgery Post Op Note Celeste Podn returned to our office today for post surgical follow-up. Date of surgery: 01/22/24 Procedure(s): Bilateral breast reduction (iJmbo) Findings: BBR R 829g, L 772g POD # 7 Subjective : Pain: Celeste reports mild discomfort. She reports that she her is using extra strengthtylenol and motrin with good effect. She already feels substantial relief of her back pain and is happy with her results. Objective : General: Alert, comfortable, conversant, ambulating Breasts: Swelling: mild bilaterally Bruising: mild bilaterally Good symmetry and good perfusion of NAC's bilaterally.Areola incisions are approximated with no drainage. Nipples have normal projection Incisions are well approximated . She was provided with a copy of her path report indicating benign breast tissue. Assessment: No evidence of delayed healing,erythema, or fluid collection. Incisions CDI Plan: Instructed in care of incision lines,and activity restrictions,provided in AVS. We reviewed signs and symptoms of infection, spitting sutures, parameters for normal post op swelling and bruising as stated in our post op brochure. We reviewed communication through [facility] portal, and correct phone numbers to call for concerns on AVS, Begin scar massage at 4-6 weeks post op- instructions provided in AVS Supplies: a lindsay surgical bra was provided Follow up: [address] Choi or sooner if needed. Celeste expressed understanding of her instructions, and is happy with today's visit and plan of care. documented in this encounter Plan of Treatment Not on file documented as of this encounter Visit Diagnoses Diagnosis Surgery follow-up Follow-up examination, following unspecified surgery documented in this encounter Care Teams Cigarette Inspector Relationship Specialty Start Date End Date None None PCP - General 09/12/23 08/15/24 documented as of this encounter
--- OUTSIDE RECORDS SUMMARY | 2024-12-04 11:42 | XMS_ITS | Encounter Summary ---
Author Organization [facility] [place] [address] Care Team Providers Care Poultry Farmer Name Role Phone None Primary Care Provider Unavailabl e Reason for Visit * Auth/Cert (Routine) Specialty Diagnoses / Procedures Referred By Jay t Referred To Contact Diagnoses macromastia Procedures PRO BREAST REDUCTION PRO FULL THICK GRFT TRUNK <20 SQCM REDUCTION MAMMOPLASTY, JORDAN (WRVU 16.03) FTSG, FREE, DIR CLOSE DONOR SITE, TRUNK, 20 SQ CM OR LESS (WRVU 9.15) MODIFIER MACKEY Bry Choi MD [facility] [place] [address] [facility] Referral ID Status Reason Start Date Expiration Date Visits Re quested Visits Authorized [id number] 1 1 Encounter Details Date Type Department Care Team (Late st Contact Info) Description 01/22/2024 7:30 AM EST - 01/22/2024 10:20 AM EST Surgery [place] [id number] Bry Choi MD [facility] [place] [address] REDUCTION MAMMOPLASTY, JORDAN (WRVU 16.03) Social History Tobacco Use Types Packs/Day Years Used Date Smoking Tobacco: Former Cigarettes Smokeless Tobacco: Never Tobacco Cessation:Counseling Given: Not Answered Alcohol Use Standard Drinks/Week Comments Yes 0 (1 standard drink = 0.6 oz pur e alcohol) [address] [facility] Inpatient Questions Answer Date Recorded Does Anyone Try to Keep You From Having Contact with Others or Doing Things Outside Your Home? no 01/22/2024 Feels Threatened by Someone no 0 04/2024 Feels Unsafe at Home or Work/School no 01/22/2024 Physical Signs of Abuse Present no 01/22/2024 Sex and Gender Information Value Date Recorded Sex Assigned at Not on file Gender Identity Not on file Sexual Orientation Not on file documented as of this encounter Last Filed Vital Signs Vital Sign Reading [...] Mass Index 33.45 01/22/2024 6:13 AM EST documented in this encounter Discharge Instructions * Discharge Instructions* Abigail Hill, RN - 01/22/2024 6:34 AM EST Images from the original note were not included. General Anesthesia Discharge Instructions Go home and rest. You may be sleepy for several hours. Take it easy as sudden position changes may cause nausea and/or dizziness. Use caution on stairs. Do not smoke if you are alone. Follow a light to regular diet as tolerated today. If nausea occurs, start with clear liquids, and progress slowly to a regular diet. Do not drive, operate machinery, drink alcoholic beverages or make any legal decisions after havinggeneral anesthesia. The medications given change your reaction time and alter your judgement. IV site -- slight redness is normal, you can use warm compresses. If tenderness and redness increases or foul drainage occurs, please contact your M.D. Patients who have had endotracheal tubes/LMA (tubes used by the anesthesia staff to ensure a safe airway during your operation) may have a sore throat. This is normal and cold liquids or soothing lozenges will help ease this discomfort. Narcotic pain medications can cause constipation, please ask the surgeons office what they recommend for prevention of this. Some non-pharmaceutical means of constipation prevention include increasing intake of fluids, eating more fruits and vegetables as well as fruit juices. If you are uncomfortable and/or unable to urinate within 8 hours of discharge and it is before 5 pm, call your physician. If it is after 5pm go to the closest emergency room or call the hospital electric system operator at [phone] and ask for physician mechanical applications engineer covering for your physician. Questions or problems after 5pm or on a weekend: Call the [facility] electric system operator at and ask for the physician mechanical applications engineer covering for your doctor. At 6:30 am you received 975 mg of acetaminophen- Your next dose should not be taken before 8 hours have passed or as advised by your provider. Next dose not before- 2:30pm You should not take more than a total of 3000 mg of acetaminophen in a 24 hour period. DRAIN CARE INSTRUCTIONS This device collects fluid, promotes healing and recovery, and reduces the chance of infection. Thedrain will be in place until your doctor feels it can be removed. *Strip and empty drain(s) at least twice a day or when full and record output on your chart* Call clinic when each drain has 30cc or less in 24 hours for two days in a row How to Strip and Empty Your SEBASTIAN Drain: Wash your hands. Unpin the drain from your clothing. Strip the Tube: Pinch the tube where it is inserted in to the skin with one hand. Use the other hand to gently squeeze the tube and slide fingers down towards bulb. This forces drainage into bulb. Some drainage may remain in tubing. Repeat as necessary in order to facilitate the drainage. Emptying Drain: Open the top of the drain. Turn the drain upside down and squeeze the contents of the bulb into themeasuring cup. Do not disconnect drain from tubing or rinse it out. Record drainage on your chart when emptying bulb. Remember to record the drainage from each drain separately if applicable. Use one hand to squeeze all of the air from the bulb. With the drain still squeezed, use your otherhand to replace the stopper/plug. This creates the suction. . Pin the drain back to your clothing. Wash your hands again Troubleshooting The bulb is not compressed- Undo plug, re-squeeze bulb and replace plug while squeezing bulb. If the bulb remains expanded, then notify your doctor. No drainage or sudden decrease in amount of drainage- This is usually due to clots in the drain. Follow the instructions on how to strip the drain tubing. If tube accidentally falls out- Place a dry gauze dressing over the drain site and notify your doctor. Increased redness, thick or smelly drainage, swelling, or heat around the tube insertion site- Thismay be a sign of infection. Take your temperature: if it is higher than 101F or 38.8C, call your doctor immediately. Drainage Record NAME: Date of Surgery: Date: Time: If more than one drain, which one: Drainage Amount (per drain) Total Amount (per drain; in 24 hours) * Patient Instructions* Ladarius Vasquez MD - 01/22/2024 6:59 AM EST Breast Reduction Discharge Instructions The healing process after breast reduction surgery varies with each person. You should expect to feel tired for the first 2 - 3 weeks due to anesthesia and the healing process. Rest often during the day and get a good night sleep. Pain (short term and assisted) With any surgery there is some discomfort or pain. You should take both tylenol and ibuprofen. We will prescribe narcotic pain medication in case you require additional pain medication. Take as prescribed and only as needed. We recommend taking an jwdm-lrh-Wdfhuyn stool softener, such as Colace (docusate) or a gentle laxative while taking your narcotic pain reliever. This will help to maintain bowel regularity and prevent straining. Drink plenty of water. You will may have nerve pain after your surgery because the nerve endings have been disturbed. Nerve pain may feel like a burning sensation, itching or a shooting, electric shock pain. This is normaland will get better as you heal. Swelling Moderate bruising and swelling is normal in the first few weeks after surgery. The swelling will gradually go down, but it may remain for 3 to 6 months. To help with swelling wear your compression bra. Showering Do NOT shower until your bolsters come down. Do not take a bath or use a hot tub until incisions are completely healed. If you have drains in place, tie a shoe lace or string around your neck and attach the drains to this to prevent accidental removal. Have someone nearby during your first shower. Incisions/Dressings You may have some red, pink, yellow/clear drainage from your incisions for the first 1-2 weeks. Change gauze as needed. Continue to use dressings until there is no more drainage. DO???S AND DON???TS FOR THE NEXT [address] a motor vehicle for 1-2 weeks or until you can handle the steering wheel without discomfort. Do not drive while taking your narcotic. You will be able to wear a seat belt if you place a small pillow over your chest area. Do not engage in sexual activity for at least 1 week. Do not smoke or be around anyone who smokes for 2 weeks after your surgery. Smoking delays healing and can lead to infection. Do not lift more than 5 pounds or bend at the waist to lift for 6 weeks. Do not participate in strenuous activities such as running or aerobics for 6 weeks. Do resume walking at a gentle pace. Protect your incisions from the sun for 6 months. You may return to work in 1-6 weeks (average time is 3 weeks) depending upon your work activity. GETTING A GOOD NIGHT SLEEP Your surgeon may ask you to sleep on your back for a few weeks. Here are some suggestions for a good nights sleep. Try sleeping in a recliner. Have extra pillows in your bed for support: two along your side and one under your knees to relievelower back pressure. Buy a large body pillow or a pillow with arm rests for sitting up in bed. GETTING OUT OF BED You will be asked to limit the use of your arms for a few weeks after surgery. This can be a problem when trying to get out of bed. The following suggestions help you get out of bed with minimal use of your arms. When in bed, pull your knees up towards your chest and tip to the side, gently rolling out of bed. Take care not to roll onto your breasts. Create a nest of pillows to prop you in a semi-upright position helps give you that extra boost to get out of bed. Have someone put gentle pressure to your lower shoulder blades as you sit up. This gives you the extra power you need to get to your feet. Complications: Call your doctor with the following signs of infection: A temperature over 100.4 F or 38 C Redness at the incision line that spreads away from the incision after the first 48 fredy thick yellow, foul smelling drainage Increasing pain that is not relieved by your pain medicine One breast becomes much larger and more firm than the other Contact your Doctor To make an appointment or for questions about scheduling, please contact our administrative officesat [phone] For clinical questions, please call our nurses at [phone] Both offices are open Saturday thru Saturday 8a - 5p. With emergencies after hours, call the hospital electric system operator at [phone] and ask for the Plastic Surgery Resident mechanical applications engineer. Future Appointments Date Time Provider Department Center 01/29/2024 1:00 PM NURSE, PLASTIC SURGERY [address] documented in this encounter Medications at Time of Discharge Medication Sig Dispensed Refills Start Date End Date traMADoL (Ultram) 50 mg tablet Take 1 tablet by mouth every 6 hours as needed for Pain. 10 tablet 01/22/2024 06/11/2024 documented as of this encounter Progress Notes * Abigail Hill RN - 01/22/2024 10:38 AM EST Patient endorsing 8/10 pain, one time 50mg Tramadol given with good effect. Surgical dressing remains in place with scant dried bloody drainage. Denies n/v, tolerating PO fluids. Discharge instructions and medications reviewed with patient and escort. All questions answered and written copy sent home with patient. Staff assisted dressing patient and all belongings returned to patient. Patient ambulated to car for discharge accompanied by [facility] staff member. documented in this encounter H&P Notes * Ladarius Vasquez MD - 01/22/2024 6:51 AM EST Patient Name: Celeste Pond Patient Age: 28 y.o. Birthdate: 1995 Admit date: 01/22/2024 Attending Physician: Bry Choi MD Plastic Surgery Preoperative H&P: Patient Name: Celeste Pond Patient : 1995 Today's Date: 01/22/2024 Celeste Pond is a 28 y.o. female presenting for bilateral breast reduction with FNG. No changes since last seen. History reviewed. No pertinent past medical history. History reviewed. No pertinent surgical history. History reviewed. No pertinent family history. Social History Socioeconomic History Marital status: Single Spouse name: Not on file Number of children: Not on file Years of education: Not on file Highest education level: Not on file Occupational History Not on file Tobacco Use Smoking status: Former Types: Cigarettes Smokeless tobacco: Never Vaping Use Vaping Use: Former Substance and Sexual Activity Alcohol use: Yes Comment: 3 per week Drug use: Yes Frequency: 1.0 times per week Types: Marijuana Comment: edible Sexual activity: Not on file Other Topics Concern Not on file Social History Narrative Not on file Social Determinants of Health Financial Resource Strain: Not on file Food Insecurity: Not on file Transportation Needs: Not on file Physical Activity: Not on file Intimate Partner Violence: Not At Risk (01/22/2024) IPV Inpatient Questions Prevent Contact with Others: no Feels Threatened by Someone: no Feels Unsafe at Home: no Physical Signs of Abuse Present: no Housing Stability: Not on file Allergies Allergen Reactions Amoxicillin Rash Review of systems: As per HPI, otherwise non-contributory. Exam: General: NAD Resp: CTAB CV: normal rate, regular rhythm A/P: Celeste Pond is a 28 y.o. female presenting for bilateral breast reduction with FNG - Proceed to OR. The risks, benefits and indications were reviewed with the patient and there remains an indication for surgery. Consent signed. - Preoperative abx ordered Ladarius Vasquez PGY-3 Plastic & Reconstructive Surgery Pager: [phone] documented in this encounter Miscellaneous Notes * Brief Op Note - Bry Choi MD - 01/22/2024 9:20 AM EST Brief Operative Note Patient Name: Celeste Pond : [id number] MR#: [id number] Case Date: 01/22/2024 Surgeon: Surgeon(s) and Role: * Bry Choi MD - Primary * Ernestina Rios MD - Resident - Assisting * Ladarius Vasquez MD - Resident - Assisting Preoperative diagnosis: macromastia Postoperative diagnosis: macromastia Procedure(s) (LRB): REDUCTION MAMMOPLASTY, JORDAN (WRVU 16.03) (Bilateral) Anesthesia: General anesthesia Findings: BBR R 829g, L 772g Complications: none Estimated Blood Loss: * No values recorded between 01/22/2024 7:53 AM and 01/22/2024 9:20 AM * Specimens removed during surgery: * No orders in the log * Fluids: Intraprocedure Crystalloid Total None PRBCs: none (See Anesthesia Record/Report for Other Blood Products) Urine Output: (no urine output recorded) Drains: none Disposition: awakened from anesthesia, extubated and taken to the recovery room in a stable condition, having suffered no apparent untoward event. Condition: doing well without problems (Please see the Surgical Encounter Summary for any Implant and Specimen details pertinent to this patient.) Surgical Infection Prevention Bundle Used? N/A Post Op Plan: 7-10 days: Return for wound check, suture removal, give patient pathology report, lindsay bra fitting, review post-op activity restrictions 6 months: skilled nursing f/u with surgeon Future Appointments Date Time Provider Department Center 01/29/2024 1:00 PM NURSE, PLASTIC SURGERY [facility] [address] [place] [address] * Op Note - Bry Choi MD - 01/22/2024 7:53 AM EST [facility] Operative Note Patient Name: Celeste Pond : [id number] MR#: [id number] Case Date: 01/22/2024 Surgeon: Surgeon(s) and Role: * Bry Choi MD - Primary * Ernestina Rios MD - Resident - Assisting * Ladarius Vasquez MD - Resident - Assisting Preoperative diagnosis: macromastia Postoperative diagnosis: macromastia Procedure(s) (LRB): REDUCTION MAMMOPLASTY, JORDAN (WRVU 16.03) (Bilateral(WRVU 9.15) (Bilateral) MODIFIER MACKEY (N/A) Findings: grossly normal appearing breast tissue Anesthesia: General Estimated Blood Loss: 100cc Specimens removed during surgery: * No orders in the log * Drains: none Surgical Closure: Primary Closure - skin incision is completely closed without any wires, margaret, drains or other devices Disposition: awakened from anesthesia, extubated and taken to the recovery room in a stable condition, having suffered no apparent untoward event. Condition: doing well without problems (Please see the Surgical Encounter Summary for any Implant and Specimen details pertinent to this patient.) HPI/Surgical Indications: 28yo F with symptomatic macromastia. Procedure Description: The patient was identified and marked in the preoperative holding area. We reviewed the surgical plan, risks, and complications, and she wished to proceed. Patient was marked in the pre-operative area. The patient was brought to the operating room and positioned supine on the operating table with thearms out. Anesthetic monitors and SCDs were applied. General anesthesia was induced and a time-out was performed. The entire chest was prepped and draped in the usual sterile fashion. Pre-operative antibiotics were administered. We began with the right breast. 10cc of 1% lidocaine with epinephrine was injected into the the skin. The pedicle was marked to be about 7-8cm in width and nipple was marked with a diameter of about 42mm. The skin on the pedicle was de-epithelized expect for the marked nipple. The marked incisions were made through the dermis using a scalpel. The marked pedicle was dissectedusing monopolar electrocautery. Then this dissection was extended to the medial upper al down to the pectoralis fascia, then the inferior lower marked thru the entire breast. The lateral upper marked was then dissection down to the pectoralis fascia. Then the marked superior to the pedicle was dissected down to the pectoralis fascia, observant to leave behind a pocket that allowed for the pedicle to be tucked underneath. Then a lateral flap was raised, about 1 inch in thickness. This allowed the resection tissue to be released completely. The right mass was 0.829kg. The same steps were completed on the left, the left breast resection mass was 0.779kg. Careful hemostasis was achieved with monopolar electrocautery. The deep dermals were done utilizing 4-0 vicryls around the nipple and 3-0 vicryl for the rest. Theskin was then closed with a 4-0 subcuticular monocryl. The patient was placed in a surgical bra. Sponge and needle counts were all correct at the end of the case. There were no intraoperative complications. The patient was awakened from anesthesia without any difficulties. Surgical Infection Prevention Bundle Used? N/A Attestation: Case Date: 01/22/2024 I was present and I participated during the entire procedure (does not need to include opening and closing). Bry Choi MD 01/22/2024 documented in this encounter Plan of Treatment Not on file documented as of this encounter Procedures Procedure Name Priority Date/Time Associated Diagnosis Comments SPECIMEN TO PATHOLOGY Routine 01/22/2024 9:26 AM EST SPECIMEN TO PATHOLOGY Routine 01/22/2024 9:26 AM EST SURGICAL PATHOLOGY REPORT Routine 01/22/2024 9:25 AM EST MODIFIER MACKEY 01/22/2024 7:32 AM EST Macromastia Full Thick Grft Trunk <20 Sqcm (92586) 01/22/2024 7:32 AM EST Macromastia Breast Reduction ([id number]) 01/22/2024 7:32 AM EST Macromastia REDUCTION MAMMOPLASTY, BILATERAL Routine 01/22/2024 6:09 AM EST Macromastia FTSG, FREE, DIR CLOSE DONOR SITE, TRUNK, 20 SQ CM OR LESS Routine 01/22/2024 6:09 AM EST Macromastia documented in this encounter Results * Specimen to Pathology (01/22/2024 9:26 AM EST) AP Specimen 01/22/2024 9:26 AM EST 01/22/2024 9:26 AM EST Narrative [facility] - 01/22/2024 9:26 AM EST Specimen requisition ordered. ??Separate Pathology report to follow Bry Choi MD PATHOLOGY/CYTOLOGY ORDERABLES [facility] [place] [address] * Specimen to Pathology (01/22/2024 9:26 AM EST) AP Specimen 01/22/2024 9:26 AM EST 01/22/2024 9:26 AM EST Narrative [facility] - 01/22/2024 9:26 AM EST Specimen requisition ordered. ??Separate Pathology report to follow Bry Choi MD PATHOLOGY/CYTOLOGY ORDERABLES Performing Organization Address City/State/[facility] Co de Phone Number [facility] [place] [address] * Surgical Pathology Report (01/22/2024 9:25 AM EST) Final Diagnosis [id number] ? Location: [facility] The signing pathologist has (i) examined the relevant preparation(s) for the specimen(s) and (ii) rendered or confirmed the diagnosis(es). . ?Surgical Pathology DIAGNOSIS A - Left breast tissue, reduction mammoplasty: ??- Benign breast tissue B - Right breast tissue, reduction mammoplasty: ??- Benign breast tissue Electronically signed by: ?Luna Contreras DO Verified: ??01/27/2024 10:47 ??Pathologist Performed at: ??-[facility] Dept. of Pathology, [place] [address] Clerical Secretary: Caroline Esquivel MD, AP, ??CLIA Certificate: [id number] SPECIMEN(S) SUBMITTED A - Left breast tissue, excision (1) B - Right breast tissue, excision (1) CLINICAL INFORMATION Macromastia SPECIMEN PROCESSING A - Labeled/Fixativ e: Left breast tissue, fresh. Quantity/Size: Fragments, 760 g, 20 x 15 x 5 cm in aggregate. Tissue Description: Cárdenas-pink skin with attached yellow, lobulated adipose tissue sectioned to reveal yellow, lobulated white fibrous cut surfaces with a fat to fibrous ratio of 85:15. ??No discrete lesions are grossly identified.. Sections/Proces sing: Tissue procured for tumor molecular physicist sections in 3 cassettes labeled A1-A3. B - Labeled/Fixativ e: Right breast tissue, fresh. Quantity/Size: Fragments, 817 g, 20 x 15 x 5 cm in aggregate. Tissue Description: Cárdenas-pink skin with attached yellow, lobulated adipose tissue sectioned to reveal yellow, lobulated white fibrous cut surfaces with a fat to fibrous ratio of 85:15. ??No discrete lesions are gross identified.. Sections/Proces sing: Tissue procured for tumor molecular physicist sections in 3 cassettes labeled B1-B3. ??krd 01/27/2024 10:47 AM EDT [facility] BREAST STRUCTURE / Unknown 01/22/2024 9:25 AM EST 01/22/2024 9:25 AM EST BREAST STRUCTURE / Unknown 01/22/2024 9:25 AM EST 01/22/2024 9:25 AM EST Bry Choi MD PATHOLOGY/CYTOLOGY ORDERABLES [facility] [address] [place] [address] documented in this encounter Visit Diagnoses Diagnosis Macromastia Hypertrophy of breast Macromastia Hypertrophy of breast documented in this encounter Administered Medications Inactive Administered Medications - up to 3 most recent administrations Medication Order MAR Action Action Date Dose Rate Site acetaminophen (Tylenol) tablet 975 mg 975 mg, Oral, ONCE, 1 dose, On Sat01/22/24 at 0630, Administer with a SIP of water only. Maximum dose of acetaminophen is 4,000 mg from all sources in 24 hours., Day of Surgery (Day of Procedure), Routine Given 01/22/2024 6:25 AM EST 975 mg lidocaine-EPINEPHrine (1% - 1:100,000) injection PRN, Starting on Sat01/22/24 at 0755, Until Sat01/22/24 at 1240, Intra-Operative (Intra-Procedure), Routine Given 01/22/2024 7:55 AM EST 18 mLs 19- Surgical Site traMADoL (Ultram) tablet 50 mg 50 mg, Oral, EVERY 6 HOURS PRN, Starting on Sat01/22/24 at 0655, Until Sat01/22/24 at 1240, Pain, Routine Given 01/22/2024 9:59 AM EST 50 mg documented in this encounter Active and Recently Administered Medications Times are shown in EST. Scheduled Medication Order 01/20/2024 01/21/2024 01/22/2024 acetaminophen (Tylenol) tablet 975 mg (COMPLETED) 975 mg, Oral, ONCE, 1 dose, On Sat01/22/24 at 0630, Administer with a SIP of water only. Maximum dose of acetaminophen is 4,000 mg from all sources in 24 hours., Day of Surgery (Day of Procedure), Routine 0625 (Given - Provid er: Miranda Tesfaye RN) clindamycin (Cleocin) (150 mg/mL) injection 600 mg (COMPLETED) 600 mg, Intravenous, ONCE, 1 dose, On Sat01/22/24 at 0715, Routine, Indication for (Active or Suspected): Prophylaxis 0740 (Given - Provid er: Rowena Syed CRNA) PRN Medication Order 01/20/2024 01/21/2024 01/22/2024 lidocaine-EPINEPHrine (1% - 1:100,000) injection (CANCELED) PRN, Starting on Sat01/22/24 at 0755, Until Sat01/22/24 at 1240, Intra-Operative (Intra-Procedure), Routine 0755 (Given - Provid er: Bry Choi MD) traMADoL (Ultram) tablet 50 mg 50 mg, Oral, EVERY 6 HOURS PRN, Starting on Sat01/22/24 at 0655, Until Sat01/22/24 at 1240, Pain, Routine 0959 (Given - Provid er: Abigail Hill RN) No Frequency Medication Order 01/20/2024 01/21/2024 01/22/2024 clindamycin (Cleocin) 300 mg/50 mL infusion 1 dose, Starting on Sat01/22/24 at 0728, Until Sat01/22/24 at 1240, Yusra Stroud: cabinet override 0730 (Due) documented in this encounter Care Teams Poultry Farmer Relationship Specialty Start Date End Date None None PCP - General 09/12/23 08/15/24 documented as of this encounter
--- OUTSIDE RECORDS SUMMARY | 2024-12-04 11:42 | XMS_ITS | Encounter Summary ---
Author Organization [facility] Address [facility] [place] [address] Care Team Providers Care Stencil Cutter Machine Name Role Phone None Primary Care Provider Unavailabl e Reason for Visit * Reason Comments Advice Only Consult, BBR * Consultation (Routine) - Closed Specialty Diagnoses / Procedures Referred By Jay brown Referred To Contact Plastic Surgery Diagnoses BBR consult Procedures CONSULT Self mail Bry Choi MD [facility] [place] [address] Referral ID Status Reason Start Date Expiration Date Visits Re quested Visits Authorized [id number] Closed 09/12/2023 09/11/2024 5 5 Encounter Details Date Type Department Care Team (Late st Contact Info) Description 09/12/2023 2:30 PM EDT Office [place] [address] Bry Choi MD [facility] [place] [address] Macromastia Social History Tobacco Use Types Packs/Day Years Used Date Smoking Tobacco: Former Cigarettes Smokeless Tobacco: Never Tobacco Cessation:Counseling Given: Not Answered Sex and Gender Information Value Date Recorded Sex Assigned at Not on file Gender Identity Not on file Sexual Orientation Not on file documented as of this encounter Last Filed Vital Signs Vital Sign Reading Time Taken Comments Blood Pressure - - Pulse - - Temperature - - Respiratory Rate - - Oxygen Saturation - - Inhaled Oxygen Concentration - - Weight 103 kg (227 lb) 09/12/2023 1:58 PM EDT Height 173.7 cm (5' 8.39) 09/12/2023 1:58 PM ED T Body Mass Index 34.13 09/12/2023 1:58 PM EDT documented in this encounter Patient Instructions * Patient Instructions* Alva Callahan, SAMINA - 09/12/2023 2:30 PM EDT Preoperative Instructions You have been scheduled to have plastic surgery. The instructions below are specific to your procedure. If you are a smoker, we ask that you stop at least 2 months prior to your surgical date and remain nicotine free for at least a month after surgery. Smoking can impair healing and increase your chance of infection. Due to a strong risk for delayed healing, we will preform a CO2 test on the day of your surgery to test for byproducts of smoking.If the test is positive your surgery will be cancelled. If you are 40 years old or older, please remember to have a mammogram with in one year prior to your upcoming breast reduction surgery as we advise not having one for at least six months after surgery. Two Weeks prior to Surgery Stop Vitamin E, Garlic supplements, Ginseng, Fish Oil tablets, Ginkgo and Lucas's Wort and any other herbals. You may resume taking 48 hours after surgery. YOU DO NOT NEED TO STOP any aspirin or ibuprofen products before your surgery. If you need medication for pain, you may take Tylenol or extra strength Tylenol during this two week period. One Week prior to Surgery Please call if you feel ill, have cold or fever, have a rash or breaks in the skin near your surgical site. Stay hydrated. Avoid alcohol and recreational drugs Three Days before Surgery Do not shave near your surgical site One Day before Surgery Shower the night before and the morning of surgery using an antibacterial soap (Dial or Lever 2000)or Hibiclens wash and Breast Surgery - Wash your chest and underarms for several minutes the night before and the morning of surgery using an antibacterial soap (Dial or Lever 2000) or Hibiclens wash. The Same Day Surgery Team will call you the business day before your surgery to give you instructions specific to your procedure and your surgical time. Generally, you will be asked not to eat any solids after midnight. You are allowed clear liquids (water, juan anup, apple juice, black coffee andplain tea) until 2 hours prior to your surgery. Day of Surgery A inventory associate and driver is required at time of discharge. If you are a Same Day procedure and do not have a driveryour surgery will be canceled. DO NOT wear any jewelry, makeup or artificial nails the day of surgery. DO NOT apply any lotions, powders or deodorants on or near the surgical site the day of surgery. Do wear comfortable, loose fitting clothes. Anesthesia will meet with you the morning of surgery. They will perform an assessment and review your history with you. Contact Information: During regular office hours (Saturday- Saturday, non-holiday 8:00 am- 5:00 pm) For an appointment or insurance questions For questions pertaining to your surgical date [phone] For nursing related questions [phone] On weekends, holidays or after office hours: Call and ask the metal buggy operator to page the Plastic Surgery Resident quality control checker. Plastic surgery Clinic fax number: [phone] documented in this encounter Progress Notes * Susan Mendoza - 09/12/2023 2:30 PM EDT Images from the original note were not included. Plastic Surgery Consultation Note Provider: Bry Choi MD PCP: None Reason for office visit: Symptomatic macromastia HPI: Celeste Pond is a 28 y.o. female who presents today for evaluation of symptomatic macromastia. She is unaccompanied for today???s visit. Patient has been thinking about surgery 5-6 years. Patient was a c-cup by 8th grade. Celeste currently wears a 38H and ideally would like to be a B cup. Patient lost 30lbs last year but that didn't affect her bra size. Patient suffers from back/shoulder pain and bra strap grooving. Patient has seen a chiropractor for one year without improvement. She tries to control the pain with heating pads, stretching, and a massage gun. Patient constantly gets rashes underneath her breasts which she treats with OTC creams and powders. She has difficulty finding bras in her size and they continue to be uncomfortable. Patient is non-binary but wants to maintain a feminine look. Sometimes she binds her breasts and she finds it very uncomfortable. Patient is comfortable with a FNG. Patient does not plan to have children. Patient's paternal grandmother had breast cancer. 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 Patient denies smoking. Patient reports that her cup size has been stable for at least 6 months. Examination: BMI: Ht 173.7 cm (5' 8.39) Wt 103 kg (227 lb) BMI 34.13 kg/m?? BSA: Body surface area is 2.23 meters squared. General: On my examination today, the patient appears to be in good health. Her emotional outlook is positive and she asked appropriate questions throughout the visit. Breasts: Bra size: 38H Goal cup size: B Bilateral grade 2 ptosis + shoulder strap grooving No breast masses Moderate axillary rolls Deep should strap grooving IMF with erythema and thinned skin c/w chronic intertrigo No active infections 2 Impression: Symptomatic bilateral breast hypertrophy. Bilateral breast reduction is indicated for relief of her breast-related symptoms. She watched the RAIMUNDO video on breast reduction, and was provided with an ASPS brochure and informed consent on breast reduction. It reviews the surgical risks, alternate skin incisions and pedicle versus free nipple graft techniques. It also discusses the optionof volume reduction by liposuction alone, which does not alter the nipple- areolar complex position.It talks about the impact of this surgery on decreasing breast cancer risk. We reviewed the timing of surgery relative to weight fluctuations and I've advised that surgery is best done at a realistic chcf stable weight. We talked about the outpatient nature of the surgery, drains, postoperative recovery, and time required off work. She should anticipate at least 2-3 weeks off from work. Post-operative restrictions include no lifting, pushing, or pulling more than 5lbs for 4-6 weeks. I think Celeste Pond would receive significant symptomatic relief from a bilateral breast reduction. The following risks were reviewed in the video or in our discussion: Surgical Risks which are greater with open reduction: bleeding with risk of hematoma (<5%); numbness, which may be temporary or permanent; scarring, including abnormal scarring; infection (5-10%);fat necrosis resulting in a breast mass and possible need for revision. I stressed the likelihood of minor problems with delayed wound healing (~30%) and the rare complication of nippleareolar necrosis. She is also aware that there may be some residual pain after the surgery and that there may possibly be some asymmetry. Vertical or Lollipop Incision: Less scarring on breast, but slightly greater risk for delayed healing and desire for scar revision. (She was informed that her insurer might not cover secondary revisions for scarring or asymmetry.) Mancilla or Excello Pattern Incision: More scarring on breast, but lower risk for scar revision. (She was informed that her insurer might not cover secondary revisions for scarring or asymmetry.) Pedicle Technique: volume of reduction may be limited by need to provide an adequate blood supply to the nipple. There is a very small risk of nipple loss. Most women (~60%) will be able to breast-feed. Free Nipple Graft: The grafts will initially have no sensation and once fully healed may not respond to temperature and touch as they do now. She has also been informed that they may not look entirely normal and may have patchy hypopigmentation. She will not be able to breast feed with this technique. After fully discussing the options, she has opted to pursue a: Bilateral Breast Reduction Mancilla, Pedicle X Bilateral Breast Reduction Mancilla, FNG Anticipated resection: 1500 grams right breast and 1500 grams left breast BSA [employer]/[place] Medicaid All other / Schnur 2.20 1000 895 2.25 1000 978 Photos 09/12/23 She would like to proceed with surgery and I will inform her PCP of this plan. Photos taken today with informed signed consent Plan: Schedule surgery Surgical Grid: Surgeon: Jimbo Duration: 2.5 hours Timeframe: Elective Procedure: Bilateral breast reduction CPT: 43520, 19725 Surgical Technique: mancilla, FNG Surgical site: Breasts Side: Bilateral Anesthesia: General Follow up: 7-10 days for HCK, possible drain H&P: Day of surgery Need to discontinue blood thinners pre-op? N/A Need mammogram? (at or over 40) No I, Susan Mendoza, have performed the documentation for this encounter in the presence of and acting as a scribe for Bry Choi MD. documented in this encounter Plan of Treatment Not on file documented as of this encounter Visit Diagnoses Diagnosis Macromastia Hypertrophy of breast documented in this encounter Care Teams Stencil Cutter Machine Relationship Specialty Start Date End Date None None PCP - General 09/12/23 08/15/24 documented as of this encounter
--- OUTSIDE RECORDS SUMMARY | 2024-12-04 11:42 | XMS_ITS | Encounter Summary ---
[facility] [place] [address] Care Team Providers Care Hotel Yardperson Name Role Phone None Primary Care Provider Unavailabl e Encounter Details Date Type Department Care Team (Latest Contact Info) Description 09/12/2023 Travel Social History Tobacco Use Types Packs/Day Years Used Date Smoking Tobacco: Former Cigarettes Smokeless Tobacco: Never Sex and Gender Information Value Date Recorded Sex Assigned at Not on file Gender Identity Not on file Sexual Orientation Not on file documented as of this encounter Plan of Treatment Not on file documented as of this encounter Visit Diagnoses Not on filedocumented in this encounter Care Teams Hotel Yardperson Relationship Specialty Start Date End Date None None PCP - General 09/12/23 08/15/24 documented as of this encounter
--- OUTSIDE RECORDS SUMMARY | 2024-12-04 11:42 | XMS_ITS | Encounter Summary ---
Author Organization [facility] [place] [address] Care Team Providers Care Data Network Architect Name Role Phone None Primary Care Provider Unavailabl e Encounter Details Date Type Department Care Team ([facility] st Contact Info) Description 06/11/2024 9:00 AM EDT TH Visit (TeleHealth) [place] [address] Micheline Madera APRN [facility] [place] [address] Surgery follow-up Social History Tobacco Use Types Packs/Day Years Used Date Smoking Tobacco: Former Cigarettes Smokeless Tobacco: Never Alcohol Use Standard Drinks/Week Comments Yes 0 (1 standard drink = 0.6 oz pur e alcohol) 3 per week [facility] Inpatient Questions Answer Date Recorded [...] Notes * Micheline Madera APRN - 06/11/2024 9:00 AM EDT Plastic Surgery Telehealth Follow Up [...] the past week this has gotten worse. Examination: Limited due to telehealth Patient is alert, conversant, comfortable Right breast erythema inferior to NAC. Impression: Celeste Pond is a 28 y.o. female who was seen today for follow-up. New breast erythema and possible collection. I recommend that the patient come for an in person visit today and she agreed. Plan: Clinic visit today, possible drainage of collection. documented in this encounter Plan of Treatment Not on file documented as of this encounter Visit Diagnoses Diagnosis Surgery follow-up Follow-up examination, following unspecified surgery documented in this encounter Care Teams Data Network Architect Relationship Specialty Start Date End Date None None PCP - General 09/12/23 08/15/24 documented as of this encounter
--- OUTSIDE RECORDS SUMMARY | 2024-12-04 11:42 | XMS_ITS | Encounter Summary ---
Author Organization [facility] [place] [address] Care Team Providers Care Binding End Stitcher Name Role Phone None Primary Care Provider Unavailabl e Reason for Visit * Auth/Cert (Routine) Specialty Diagnoses / Procedures Referred By Jay t Referred To Contact Diagnoses macromastia Procedures PRO BREAST REDUCTION PRO FULL THICK GRFT TRUNK <20 SQCM REDUCTION MAMMOPLASTY, JORDAN (WRVU 16.03) FTSG, FREE, DIR CLOSE DONOR SITE, TRUNK, 20 SQ CM OR LESS (WRVU 9.15) MODIFIER MACKEY Bry Choi MD [facility] [place] [address] [facility] Referral ID Status Reason Start Date Expiration Date Visits Re quested Visits Authorized [id number] 1 1 Encounter Details Date Type Department Care Team (Latest Contact Info) Description 01/22/2024 6:08 AM EST - 01/22/2024 10:37 AM [facility] Hospital Encounter [place] [id number] Bry Choi MD [facility] [place] [address] Macromastia Discharge Disposition: Home Social History Tobacco Use Types Packs/Day Years Used Date Smoking Tobacco: Former Cigarettes Smokeless Tobacco: Never Tobacco Cessation:Counseling Given: Not Answered Alcohol Use Standard Drinks/Week Comments Yes 0 (1 standard drink = 0.6 oz pur e alcohol) 3 per week [facility] Inpatient Questions Answer Date Recorded Does [...] encounter Discharge Instructions * Discharge Instructions* Abigail Hill RN - 01/22/2024 6:34 AM EST Images [...] closest emergency room or call the hospital blindstitch machine operator at [phone] and ask for physician harvest contractor covering for your physician. Questions or problems after 5pm or on a weekend: Call the [facility] blindstitch machine operator at and ask for the physician harvest contractor covering for your doctor. At 6:30 am [...] good night sleep. Pain (short term and halfway) With any surgery there is some discomfort or pain. You should take both tylenol and ibuprofen. We will prescribe narcotic pain medication in case you require additional pain medication. Take as prescribed and only as needed. We recommend taking an hvvq-slu-Vkrqxoo stool softener, such as Colace (docusate) or [...] about scheduling, please contact our administrative officesat [phone] For clinical questions, please call our nurses at [phone] Both offices are open Saturday thru Saturday 8a - 5p. With emergencies after hours, call the hospital blindstitch machine operator at [phone] and ask for the Plastic Surgery Resident harvest contractor. Future Appointments Date Time Provider Department Center 01/29/2024 1:00 PM NURSE, PLASTIC SURGERY [address] documented in this encounter Medications at [...] Vasquez PGY-3 Plastic & Reconstructive Surgery Pager: [phone] documented in this encounter Miscellaneous Notes * Brief Op Note - Bry Choi MD - 01/22/2024 9:20 AM EST Brief Operative Note Patient Name: Celeste Pond : [id number] MR#: [id number] Case Date: 01/22/2024 Surgeon: Surgeon(s) and Role: [...] fitting, review post-op activity restrictions 6 months: rat exterminator f/u with surgeon Future Appointments Date Time Provider Department Center 01/29/2024 1:00 PM NURSE, PLASTIC SURGERY [address] * Op Note - Bry Choi MD - 01/22/2024 7:53 AM EST [facility] Operative Note Patient Name: Celeste Pond : [id number] MR#: [id number] Case Date: 01/22/2024 Surgeon: Surgeon(s) and Role: [...] Macromastia Full Thick Grft Trunk <20 Sqcm (49942) 01/22/2024 7:32 AM EST Macromastia Breast Reduction (34088) 01/22/2024 7:32 AM EST Macromastia REDUCTION MAMMOPLASTY, BILATERAL Routine 01/22/2024 6:09 AM EST Macromastia FTSG, FREE, DIR CLOSE DONOR SITE, TRUNK, 20 SQ CM OR LESS Routine 01/22/2024 6:09 AM EST Macromastia documented in this encounter Results * Specimen to Pathology (01/22/2024 9:26 AM EST) AP Specimen 01/22/2024 9:26 AM EST 01/22/2024 9:26 AM EST Narrative [facility] - 01/22/2024 9:26 AM EST Specimen requisition ordered. ??Separate Pathology report to follow Bry Choi MD PATHOLOGY/CYTOLOGY ORDERABLES [facility] [place] [address] * Specimen to Pathology (01/22/2024 9:26 AM EST) AP Specimen 01/22/2024 9:26 AM EST 01/22/2024 9:26 AM EST Narrative [facility] - 01/22/2024 9:26 AM EST Specimen requisition ordered. ??Separate Pathology report to follow Bry Choi MD PATHOLOGY/CYTOLOGY ORDERABLES Performing Organization Address City/State/[facility] Co de Phone Number [facility] [place] [address] * Surgical Pathology Report (01/22/2024 9:25 AM EST) Final Diagnosis [id number] ? Location: [facility] The signing pathologist has (i) examined the relevant preparation(s) for the specimen(s) and (ii) rendered or confirmed the diagnosis(es). . ?Surgical Pathology DIAGNOSIS A - Left breast tissue, reduction mammoplasty: ??- Benign breast tissue B - Right breast tissue, reduction mammoplasty: ??- Benign breast tissue Electronically signed by: ?Luna Contreras DO Verified: ??01/27/2024 10:47 ??Pathologist Performed at: ??-[facility] Dept. [place]ology, [place] [address] Instructional Technology Coordinator: Caroline Esquivel MD, AP, ??CLIA Certificate: [id number] SPECIMEN(S) SUBMITTED A - Left breast tissue, [...] identified.. Sections/Proces sing: Tissue procured for tumor utility manager sections in 3 cassettes labeled A1-A3. B [...] identified.. Sections/Proces sing: Tissue procured for tumor utility manager sections in 3 cassettes labeled B1-B3. ??krd 01/27/2024 10:47 AM EDT [facility] BREAST STRUCTURE / Unknown 01/22/2024 9:25 AM EST 01/22/2024 9:25 AM EST BREAST STRUCTURE / Unknown 01/22/2024 9:25 AM EST 01/22/2024 9:25 AM EST Bry Choi MD PATHOLOGY/CYTOLOGY ORDERABLES [facility] [place] [id number] [facility] [place] [address] documented in this encounter Visit Diagnoses Diagnosis [...] Given 01/22/2024 6:25 AM EST 975 mg traMADoL (Ultram) tablet 50 mg 50 mg, [...] (Due) documented in this encounter Care Teams Binding End Stitcher Relationship Specialty Start Date End Date None None PCP - General 09/12/23 08/15/24 documented as of this encounter
[2024-12-04 12:07] LABS: Lipase 31 U/L (<78)
[2024-12-04 12:10] LABS: ALT 16 U/L (14-59); AST 12 U/L (15-37); Albumin 3.6 g/dL (3.4-5.0); Alkaline Phosphatase 50 U/L (46-116); BUN 11 mg/dL (7-18); CREATININE 0.8 mg/dL (0.55-1.02); Calcium 9.9 mg/dL (8.5-10.1); Chloride 104 mmol/L (98-107); Estimated GFR 101.59 (mL/min/1.73m2); Glucose 98 mg/dL (74-106); Sodium 140 mmol/L (136-145); Total Protein 7.6 g/dL (6.4-8.2)
== END 2024-12-04 11:38 | disposition home or self-care (01) ==
LOC: LBO 11:39
PROVIDERS: PCP Nurse Practitioner Family; Visit Provider Nurse Practitioner Family
DX: R10.9 Unspecified abdominal pain (principal); R19.8 Other specified symptoms and signs involving the digestive system and abdomen; R11.0 Nausea; R06.83 Snoring; R40.0 Somnolence
CPT/HCPCS: 36415; 80053; 83690; 85025